=== PATIENT | female | born 1955 | race Caucasian/White ===

== ENCOUNTER 2024-08-07 13:11 | Outpatient (CLI) | payer MEDICARE, SELFPAY ==
--- NOTE | 2024-08-07 | ECHO_ITS ---
Patient Info Name: LUIS ANTONIO HUNTER Age: 68 years : 1955 Gender: Female Ht: 64 in Wt: 130 lbs BSA: 1.64 m2 HR: 77 bpm BP: 180 / 103 mmHg Technical Quality: Good Exam Date: 08/07/2024 1:39 PM Exam Location: Echo Lab Patient Status: Outpatient Admit Date: 08/07/2024 Staff Ordering Physician: RuyNiharika M.D. Desk Manager: Belen Balderas RDCS Attending Provider: Mario*Niharika M.D. Exam Type: CA echo doppler color flow Study Info Indications R01.1 - Cardiac murmur, unspecified Complete two-dimensional, color flow and Doppler transthoracic echocardiogram is performed. Summary 1. Complete two-dimensional, color flow and Doppler transthoracic echocardiogram is performed. 2. Left ventricular chamber dimension is normal. 3. Left ventricular systolic function is hyperdynamic, estimated at >70%. 4. There is moderate concentric increased left ventricular wall thickness. 5. The left ventricular diastolic function is grade I diastolic dysfunction. 6. E/e' 28 is elevated. 7. Left atrial chamber dimension is mildly enlarged. 8. There is moderate aortic valve sclerosis. 9. The mitral valve has moderately calcified annulus. 10. No pulmonary hypertension, estimated pulmonary arterial systolic pressure is 31 mmHg. Left Ventricle E/e' 28 is elevated. Left ventricular chamber dimension is normal. Left ventricular systolic function is hyperdynamic, estimated at >70%. There is moderate concentric increased left ventricular wall thickness. The left ventricular diastolic function is grade I diastolic dysfunction. Right Ventricle Right ventricular systolic function is normal and with normal TAPSE 2.0 cm. Right ventricular chamber dimension is normal. Left Atria Left atrial chamber dimension is mildly enlarged. Right Atria Right atrial chamber dimension is normal. Aortic Valve The aortic valve is trileaflet. There is moderate aortic valve sclerosis. There is no aortic valve stenosis. There is no aortic valve regurgitation. Pulmonic Valve There is no pulmonic regurgitation. Mitral Valve The mitral valve has moderately calcified annulus. There is no mitral valve stenosis. There is no mitral valve regurgitation. Tricuspid Valve There is no tricuspid valve regurgitation. No pulmonary hypertension, estimated pulmonary arterial systolic pressure is 31 mmHg. Pericardium/Pleural There is no pericardial effusion. Inferior Vena Cava Normal inferior vena cava with >50% collapse upon inspiration consistent with normal right atrial pressure, 5 mmHg. Aorta The aortic root size at the sinus of Valsalva is normal. Left Ventricular Outflow Tract Name Value Normal LVOT 2D LVOT Diameter 1.9 cm LVOT Doppler LVOT Peak Gradient 12 mmHg LVOT Mean Gradient 7 mmHg LVOT VTI 37 cm LVOT VTI/AV VTI Ratio 0.8 LVOT Stroke Volume 108 ml LVOT CO 7.5 l/min LVOT CI 4.6 l/min/m2 Pulmonic Valve Name Value Normal RVOT Doppler RVOT Peak Gradient 3 mmHg PV Doppler PV Peak Gradient 4 mmHg Mitral Valve Name Value Normal MV Doppler MV Decel [place] 453 cm/s2 MV PHT 65 ms MV Area (PHT) 3.4 cm2 4.0-5.0 MV Diastolic Function MV E Peak Velocity 101 cm/s MV A Peak Velocity 142 cm/s MV E/A 0.7 MV Decel Time 224 ms Tricuspid Valve Name Value Normal TV Regurgitation Doppler TR Peak Velocity 256 cm/s TR Peak Gradient 26 mmHg Estimated PAP/RSVP RA Pressure 5 mmHg <=5 PA Systolic Pressure 31 mmHg <36 RV Systolic Pressure 31 mmHg <36 Aorta Name Value Normal Ascending Aorta Ao Root Diameter (MM) 3.1 cm Ao Root Diam Index (MM) 1.9 cm/m2 Aortic Valve Name Value Normal AV Doppler AV Peak Velocity 244 cm/s AV Peak Gradient 11 mmHg AV Mean Gradient 7 mmHg AV VTI 44 cm AV Area (Cont Eq VTI) 2.5 cm2 >=3.0 AV Area (Cont Eq Brendon) 3.0 cm2 AV Regurgitation 2D LVOT Area 2.9 cm2 Ventricles Name Value Normal LV Dimensions 2D/MM IVS Diastolic Thickness (2D) 1.1 cm 0.6-1.0 IVS Diastole Thickness (MM) 1.0 cm 0.6-0.9 LVID Diastole (2D) 3.4 cm 3.8-5.2 LVID Diastole (MM) 4.5 cm 3.8-5.2 LVIW Diastolic Thickness (2D) 1.3 cm 0.6-0.9 LVIW Diastolic Thickness (MM) 1.1 cm 0.6-0.9 LVID Systole (2D) 2.1 cm 2.2-3.5 LVID Systole (MM) 2.4 cm 2.2-3.5 LVOT Diameter 1.9 cm LV Mass (2D Cubed) 130.31 g 67.00-162.00 LV Mass Index (2D Cubed) 80 g/m2 43-95 Relative Wall Thickness (2D) 0.76 LV Mass (MM Cubed) 165.61 g 67.00-162.00 LV Mass Index (MM Cubed) 101 g/m2 43-95 Relative Wall Thickness (MM) 0.49 LV Fractional Shortening/Ejection Fraction 2D/MM LV Fractional Shortening (2D) 40 % 27-45 LV Fractional Shortening (MM) 46 % 27-45 LV EF (MM Teicholz) 78 % 54-74 LV EF (2D Teicholz) 72 % 54-74 LV Diastolic Volume (4C MOD) 64 ml LV EF (4C MOD) 62 % LV Diastolic Volume (2C MOD) 40 ml LV EF (2C MOD) 41 % LV Diastolic Volume (BP MOD) 49 ml 46-106 LV Diastolic Volume Index (BP MOD) 30 ml/m2 29-61 LV Systolic Volume (BP MOD) 24 ml 14-42 LV Systolic Volume Index (BP MOD) 14 ml/m2 8-24 LV EF (BP MOD) 52 % 54-74 LV Diastolic Length (4C) 8.1 cm LV Systolic Length (4C) 6.7 cm LV Stroke Volume (4C MOD) 40 ml Atria Name Value Normal LA Dimensions LA Dimension (MM) 3.5 cm 2.7-3.8 LA Volume (4C A-L) 52 ml LA Volume (BP A-L) 48 ml RA Dimensions RA Area (4C) 9.1 cm2 <=18.0 Report Signatures
--- NOTE | ~2024-08-07 | CT_ITS ---
CT Scan of the Chest without Contrast: Clinical Indication: Lung cancer screening, nicotine dependence Technique: Contiguous sections were acquired throughout the chest without intravenous contrast. Dose reduction technique was used on this scan by utilizing automated exposure control and iterative recon struction technique. The dose-length product (DLP) was 49.90 mGy-cm. Findings: There is no evidence of any significant mediastinal, hilar or axillary lymphadenopathy. The mediastin al soft tissues appear normal. There is no evidence of pleural or pericardial effusion. There are several tiny subcentimeter groundglass peripheral pulmonary nodules in the right upper lobe . Images through the upper abdomen reveal no abnormalities. Impression: Lung RADS 2: Benign appearance. 12 month follow-up screening CT advised. Reviewed, dictated and finalized at location . Impression: Lung RADS 2: Benign appearance. 12 month follow-up screening CT advised.
--- OUTSIDE RECORDS SUMMARY | 2024-08-07 14:31 | XMS_ITS | Clinical Summary ---
Author Organization [facility] [employer] Address [address] [place] [address] Care Team Providers Care Exhaust Equipment Operator Name Role Phone Unavailable Primary Care Provider Unavailabl e Source Comments [facility] hospital center Affiliates and Associated Physician Practices is amultiple site organization consisting of ambulatory clinics and hospital sitesin [place], [place], [place] and [place]. This disclosure is being madepursuant to the Care Everywhere program and may not contain all information available regarding this patient. Last updated 18.[facility] [employer] Social History Tobacco Use Types Packs/Day Years Used Date Smoking Tobacco: Never Assessed Comments Unknown Sex and Gender Information Value Date Recorded Sex Assigned at Not on file Legal Sex Female 9:15 PM CDT Gender Identity Not on file Sexual Orientation Not on file Plan of Treatment Health Maintenance Due Date Last Done Comments BONE DENSITY TESTING 1955 COLOGUARD (AGES 45-75) - COL ON CA SCREENING 1955 COLON MONITORING 1955 COLONOSCOPY - COLON CA SCREENING 1955 CT COLONOGRAPHY - COLON CA SCREENING 1955 Colorectal Cancer Screening 1955 FIT - COLON CA SCREENING 1955 FLEX SIG - COLON CA SCREENING 1955 LIPID TESTING 1955 MAMMOGRAM 1955 HEPATITIS C SCREENING 08/24/1971 DTAP/TDAP/TD VACCINES (1 - Tdap) 1972 PNEUMOCOCCAL VACCINE 50+ (1 of 1 - PCV) 08/29/2003 ZOSTER VACCINE (1 of 2) 08/29/2003 COVID-19 VACCINE ( - 2023-2 5 season) 2023 DEPRESSION SCREENING 04/26/2024 INFLUENZA VACCINE (Season Ended) 2024 Respiratory Syncytial Virus (RSV) Vaccine Pt: or over 60 yrs (1 - 1-dose 75+ series) 2028 HEPATITIS B VACCINE Aged Out No longe r eligible based on patient's age to complete this topic HIB VACCINE Aged Out No longer eligi ble based on patient's age to complete this topic HPV VACCINE Aged Out No longer eligi ble based on patient's age to complete this topic MENINGOCOCCAL (Group B) VACC INE SHARED DECISION-MAKING Aged Out No longer eligibl e based on patient's age to complete this topic MENINGOCOCCAL GROUPS A/C/Y/W VACCINE Aged Out No longer eligible b ased on patient's age to complete this topic
--- OUTSIDE RECORDS SUMMARY | 2024-08-07 14:32 | XMS_ITS | Data Portability ---
Author Organization [facility] Randa [facility] Address [address] [place] [address] Care Team Providers Care Auction Block Clerk Name Role Phone NIHARIKA TROTTER Primary Care Provider Assessment No assessment recorded. Plan of Treatment Reminders Order Date Submit Date Provider Last Modified By Organization Details Last Modified Time Details Appointments ANY 15 2024 02:15P M Niharika Trotter MD Not available Not available Not available Lab TSH, ultra- sensit una, serum 2024 025 [place] [facility], [address], [place], [address], 07/21/2024 08:29:37 urinal ysis macro (dipst ick) panel, urine 2024 025 [place] [facility], [address], [place], [address], 07/21/2024 08:29:36 CMP, serum or plasma 2024 025 [place] [facility], [address], [place], [address], 07/21/2024 08:29:34 CBC 2024 025 [place] [facility], [address], [place], [address], 07/21/2024 08:29:39 vitami n D, 25-hyd paty, total, serum 2024 025 [place] [facility], [address], [place], [address], 07/21/2024 08:29:40 Hepati tis C IgG Ab, qual, serum 2024 [place] [facility], [address], [place], [address], 07/21/2024 08:29:32 lipid panel, serum 2024 [place] [facility], [address], [place], [address], 07/21/2024 08:29:33 Referral None record ed. Procedures None record ed. Surgeries None record ed. Imaging LDCT, chest, for lung cancer screen ing 2024 [facility] (Imaging), [address] [place] [address] [place] [address], [phone], 07/20/2024 11:27:08 US, echoca rdiogr am, transt horaci c, comple te, w/ color flow - HTN, Heart murmur 2024 [facility] (Imaging), [address] [place] [address] [place] [address], [phone], 07/20/2024 11:27:08 Medication Orders nifedi pine ER 30 mg tablet ,exten ded releas e 24 hr 2024 [place] [id number], [address], [place], [place], [id number], 07/19/2024 14:51:58 Patient TargetsNo targets recorded. Patient Instructions Encounter Date Encounter Id Patient Instructions Last Modified By Organization Details Last Modified Time 07/19/2024 [id number] heart murmur: care instructions [email or web address] Not available 07/19/2024 14:42:52 Labs Low salt diet Start Nifedipine LDCT TTE Stop smoking Cologuard or the equivalent results Follow up in 4 weeks [email or web address] Not available 07/19/2024 14:56:07 Reason for Referral None Reported. Results Created Date Observation Date Name Description Value Unit Range Abnormal Flag Note LastModifiedBy Organization Detail LastModifiedTime 07/21/1907/21/2024 HCV ANTIB VOLODYMYR hep C virus Ab NON REACTI VE nonrea ctive HCV antib volodymyr alone does not diffe renti ate betwe en previ ously resol jasmin infec tion and activ e infec tion. Equiv ocal and React una HCV antib volodymyr resul ts shoul d be follo wed up with an HCV RNA test to suppo rt the diagn osis of activ e HCV infec tion. Not Available [facility] ([facility]) [address] [facility], [place], [address], 07/21/2024 08:29:32 07/21/19 25 07/21/2024 LIPID PANEL cholesterol, total 220 mg/dL 100-19 9 above high normal Not Available [facility] ([facility]) [address] [place], [address], 07/21/2024 08:29:33 07/21/19 25 07/21/2024 LIPID PANEL triglyceride s 146 mg/dL 0-149 Not Available [facility] ([facility]) [address] [place], [address], 07/21/2024 08:29:33 07/21/19 25 07/21/2024 LIPID PANEL HDL cholesterol 57 mg/dL >39 Not Available [facility] ([facility]) [address] [place], [address], 07/21/2024 08:29:33 07/21/19 25 07/21/2024 LIPID PANEL VLDL cholesterol chai 26 mg/dL 5-40 Not Available [facility] ([facility]) [address] [place], [address], 07/21/2024 08:29:33 07/21/19 25 07/21/2024 LIPID PANEL LDL chol calc ([facility]) 137 mg/dL 0-99 above high normal Not Available [facility] ([facility]) [address] [place], [address], 07/21/2024 08:29:33 07/21/19 25 07/21/2024 COMP. METAB OLIC PANEL (14) glucose 112 mg/dL 70-99 above high normal Not Available [facility] ([facility]) [address] [place], [address], 07/21/2024 08:29:34 07/21/19 25 07/21/2024 COMP. METAB OLIC PANEL (14) BUN 12 mg/dL 8-27 Not Available [facility] ([facility]) [address] [place], [address], 07/21/2024 08:29:34 07/21/19 25 07/21/2024 COMP. METAB OLIC PANEL (14) creatinine 1.07 mg/dL 0.57-1 .00 above high normal Not Available [facility] ([facility]) [address] [place], [address], 07/21/2024 08:29:34 07/21/19 25 07/21/2024 COMP. METAB OLIC PANEL (14) eGFR 56 mL/mi n/1.7 3 >59 below low normal Not Available [facility] ([facility]) [address] [place], [address], 07/21/2024 08:29:34 07/21/19 25 07/21/2024 COMP. METAB OLIC PANEL (14) BUN/creatini ne ratio 11 12-28 below low normal Not Available [facility] ([facility]) [address] [place], [address], 07/21/2024 08:29:34 07/21/19 25 07/21/2024 COMP. METAB OLIC PANEL (14) sodium 143 mmol/ L 134-14 4 Not Available [facility] ([facility]) [address] [place], [address], 07/21/2024 08:29:34 07/21/19 25 07/21/2024 COMP. METAB OLIC PANEL (14) potassium 4.2 mmol/ L 3.5-5. 2 Not Available [facility] ([facility]) [address] [place], [address], 07/21/2024 08:29:34 07/21/19 25 07/21/2024 COMP. METAB OLIC PANEL (14) chloride 102 mmol/ L 96-106 Not Available [facility] ([facility]) [address] [place], [address], 07/21/2024 08:29:34 07/21/19 25 07/21/2024 COMP. METAB OLIC PANEL (14) carbon dioxide, total 26 mmol/ L 20-29 Not Available [facility] ([facility]) [address] [facility] [place], [address], 07/21/2024 08:29:34 07/21/19 25 07/21/2024 COMP. METAB OLIC PANEL (14) calcium 9.7 mg/dL 8.7-10 .3 Not Available [facility] ([facility]) [address] [facility] [place], [address], 07/21/2024 08:29:34 07/21/19 25 07/21/2024 COMP. METAB OLIC PANEL (14) protein, total 6.7 g/dL 6.0-8. 5 Not Available [facility] ([facility]) [address] [facility] [place], [address], 07/21/2024 08:29:34 07/21/19 25 07/21/2024 COMP. METAB OLIC PANEL (14) albumin 4.2 g/dL 3.9-4. 9 Not Available [facility] ([facility]) [address] [facility] [place], [address], 07/21/2024 08:29:34 07/21/19 25 07/21/2024 COMP. METAB OLIC PANEL (14) globulin, total 2.5 g/dL 1.5-4. 5 Not Available [facility] ([facility]) [address] [facility], [place], [address], 07/21/2024 08:29:34 07/21/19 25 07/21/2024 COMP. METAB OLIC PANEL (14) bilirubin, total 0.6 mg/dL 0.0-1. 2 Not Available [facility] ([facility]) [address] [facility], [place], [address], 07/21/2024 08:29:34 07/21/19 25 07/21/2024 COMP. METAB OLIC PANEL (14) alkaline phosphatase 80 IU/L 44-121 Not Available [facility] ([facility]) [address] [facility], [place], [address], 07/21/2024 08:29:34 07/21/19 25 07/21/2024 COMP. METAB OLIC PANEL (14) AST (SGOT) 18 IU/L 0-40 Not Available [facility] ([facility]) [address] [facility], [place], [address], 07/21/2024 08:29:34 07/21/19 25 07/21/2024 COMP. METAB OLIC PANEL (14) ALT (SGPT) 9 IU/L 0-32 Not Available [facility] ([facility]) [address] [facility], [place], [address], 07/21/2024 08:29:34 07/21/19 25 07/21/2024 MICRO SCOPI C EXAMI NATIO N WBC None seen /hpf 0-5 Not Available [facility] ([facility]) [address] [facility], [place], [address], 07/21/2024 08:29:35 07/21/19 25 07/21/2024 MICRO SCOPI C EXAMI NATIO N RBC None seen /hpf 0-2 Not Available [facility] ([facility]) [address] [facility], [place], [address], 07/21/2024 08:29:35 07/21/19 25 07/21/2024 MICRO SCOPI C EXAMI NATIO N epithelial cells (non renal) >10 /hpf 0-10 abnormal Not Available [facility] ([facility]) [address] [facility], [place], [address], 07/21/2024 08:29:35 07/21/19 25 07/21/2024 MICRO SCOPI C EXAMI NATIO N casts None seen /lpf nonese en Not Available [facility] ([facility]) [address] [facility], [place], [address], 07/21/2024 08:29:35 07/21/19 25 07/21/2024 MICRO SCOPI C EXAMI NATIO N bacteria Few nonese en/few Not Available [facility] ([facility]) [address] [facility], [place], [address], 07/21/2024 08:29:35 07/21/19 25 07/21/2024 URINA LYSIS , ROUTI NE specific gravity 1.008 1.005- 1.030 Not Available [facility] ([facility]) [address] [place], [address], 07/21/2024 08:29:36 07/21/19 25 07/21/2024 URINA LYSIS , ROUTI NE pH 7.5 5.0-7. 5 Not Available [facility] ([facility]) [address] [place], [address], 07/21/2024 08:29:36 07/21/19 25 07/21/2024 URINA LYSIS , ROUTI NE urine-color YELLOW yellow Not Available [facility] ([facility]) [address] [place], [address], 07/21/2024 08:29:36 07/21/19 25 07/21/2024 URINA LYSIS , ROUTI NE appearance CLEAR clear Not Available [facility] ([facility]) [address] [facility], [place], [address], 07/21/2024 08:29:36 07/21/19 25 07/21/2024 URINA LYSIS , ROUTI NE WBC esterase NEGATI VE negati ve Not Available [facility] ([facility]) [address] [facility], [place], [address], 07/21/2024 08:29:36 07/21/19 25 07/21/2024 URINA LYSIS , ROUTI NE protein NEGATI VE negati ve/tra ce Not Available [facility] ([facility]) [address] [facility], [place], [address], 07/21/2024 08:29:36 07/21/19 25 07/21/2024 URINA LYSIS , ROUTI NE glucose NEGATI VE negati ve Not Available [facility] ([facility]) [address] [facility], [place], [address], 07/21/2024 08:29:36 07/21/19 25 07/21/2024 URINA LYSIS , ROUTI NE ketones NEGATI VE negati ve Not Available [facility] ([facility]) [address] [facility], [place], [address], 07/21/2024 08:29:36 07/21/19 25 07/21/2024 URINA LYSIS , ROUTI NE occult blood TRACE negati ve abnormal Not Available [facility] ([facility]) [address] [facility], [place], [address], 07/21/2024 08:29:36 07/21/19 25 07/21/2024 URINA LYSIS , ROUTI NE bilirubin NEGATI VE negati ve Not Available [facility] ([facility]) [address] [place], [address], 07/21/2024 08:29:36 07/21/1907/21/2024 URINA LYSIS , ROUTI NE urobilinogen ,semi-qn 0.2 mg/dL 0.2-1. 0 Not Available [facility] ([facility]) [address] [place], [address], 07/21/2024 08:29:36 07/21/1907/21/2024 URINA LYSIS , ROUTI NE nitrite, urine NEGATI VE negati ve Not Available [facility] ([facility]) [address] [place], [address], 07/21/2024 08:29:36 07/21/1907/21/2024 URINA LYSIS , ROUTI NE microscopic examination SEE BELOW: Micro scopi c was indic ated and was perfo rmed. Not Available [facility] ([facility]) [address] [place], [address], 07/21/2024 08:29:36 07/21/1907/21/2024 TSH TSH 4.290 uIU/m L 0.450- 4.500 Not Available [facility] ([facility]) [address] [place], [address], 07/21/2024 08:29:37 07/21/1907/21/2024 CBC, PLATE LET, NO DIFFE RENTI AL WBC 9.0 x10e3 /uL 3.4-10 .8 Not Available [facility] ([facility]) [address] [place], [address], 07/21/2024 08:29:39 07/21/1907/21/2024 CBC, PLATE LET, NO DIFFE RENTI AL RBC 5.64 x10e6 /uL 3.77-5 .28 above high normal Not Available [facility] ([facility]) [address] [place], [address], 07/21/2024 08:29:39 07/21/1907/21/2024 CBC, PLATE LET, NO DIFFE RENTI AL hemoglobin 14.2 g/dL 11.1-1 5.9 Not Available [facility] ([facility]) [address] [place], [address], 07/21/2024 08:29:39 07/21/1907/21/2024 CBC, PLATE LET, NO DIFFE RENTI AL hematocrit 45.2 % 34.0-4 6.6 Not Available [facility] ([facility]) [address] [place], [address], 07/21/2024 08:29:39 07/21/1907/21/2024 CBC, PLATE LET, NO DIFFE RENTI AL MCV 80 fL 79-97 Not Available [facility] ([facility]) [address] [place], [address], 07/21/2024 08:29:39 07/21/1907/21/2024 CBC, PLATE LET, NO DIFFE RENTI AL MCH 25.2 pg 26.6-3 3.0 below low normal Not Available [facility] ([facility]) [address] [place], [address], 07/21/2024 08:29:39 07/21/1907/21/2024 CBC, PLATE LET, NO DIFFE RENTI AL MCHC 31.4 g/dL 31.5-3 5.7 below low normal Not Available [facility] ([facility]) [address] [place], [address], 07/21/2024 08:29:39 07/21/1907/21/2024 CBC, PLATE LET, NO DIFFE RENTI AL RDW 14.4 % 11.7-1 5.4 Not Available [facility] ([facility]) [address] [place], [address], 07/21/2024 08:29:39 07/21/19 25 07/21/2024 CBC, PLATE LET, NO DIFFE RENTI AL platelets 360 x10e3 /uL 150-45 0 Not Available [facility] ([facility]) [address] [facility], [place], [address], 07/21/2024 08:29:39 07/21/19 25 07/21/2024 VITAM IN D, 25-HY DROXY vitamin D, 25-hydroxy 18.7 NG/mL 30.0-1 00.0 below low normal Vitam in D defic iency has been defin ed by the Insti tute of Medic ine and an Endoc rine Socie ty pract ice guide line as a level of serum 25-OH vitam in D less than 20 ng/mL (1,2) . The Endoc rine Socie ty went on to furth er defin e vitam in D insuf ficie ncy as a level betwe en 21 and 29 ng/mL (2). 1. IOM (Inst itute of Medic ine). 2009. Dieta ry refer ence intember es for calci um and D. Nilda valdivia [place]: [facility] . 2. Stephy de [place], Arlene fournier [place], Bismartha off-F errar i DINH, et al. Evalu ation , treat ment, and preve ntion of vitam in D defic iency : an Endoc rine Socie ty clini chai pract ice guide line. JCEM. 2010; 96(7) :1911 -30. Not Available [facility] ([facility]) [address] [facility], [place], [address], 07/21/2024 08:29:40 Result Notes None recorded. Problems Name Problem SNOMED Code Status Onset Date Resolution Date Notes Provider Name and Address Organization Details Recorded Time Benign hypertensio n 92202911 Active 2024 Niharika Trotter MD Attn: Accountin g,[address] [facility], [place], [address], [facility] 5 14:41:05 History of nicotine dependence Active 2024 Niharika Trotter MD Attn: Adelaida elvira,[address] [facility], [place], [place], [address] [place] [address] 2, [place] - [facility] 5 14:41:07 Pneumococca l vaccination declined 332593689 Active 2024 Niharika Trotter MD Attn: Adelaida elvira,[address] [facility], [place], [place], [address] [place] [address], [place] [facility] 5 14:41:37 Tetanus vaccination declined by patient 054592136 Active 2024 Niharika Trotter MD Attn: Adelaida elvira,[address] [facility], [place], [place], [address] [place] [address] 2, [facility] - [facility] 5 14:41:40 Heart murmur 98712150 Active 2024 Niharika Trotter MD Attn: Adelaida elvira,[address] [facility], [place], [place], [address] [place] [address] 2, [place] [facility] 14:42:59 Breast cancer screening declined 2808607766723 9103 Active 2024 Niharika Trotter MD Attn: Adelaida elvira,[address] [facility], [place], [place], [address] [place] [address] 2, [place] [facility] 19:48:27 Influenza vaccination declined 844581533 Active 2024 Niharika Trotter MD Attn: Adelaida elvira,[address] [facility], [place], [address], [place] [facility] 19:49:03 Problem Notes None recorded. Procedures Surgical History Date Name Laterality Status Provider Name and Address Organization Details Recorded Time open reduction completed Niharika Trotter MD Attn: Accounting,[address] [place], [address], [place] [facility] 07/19/2024 14:26:56 Appendectomy completed Niharika Trotter MD Attn: Accounting,[address] [place], [address], [facility] 07/19/2024 14:26:34 Imaging Results None recorded. Procedure Notes None recorded. Medical Equipment None Reported. Allergies No known drug allergies Medications Name Sig Start Date Stop Date Status Note LastModified by Organization Details LastModified Time nifedipine ER 30 mg tablet,exten ded release 24 hr Take 1 tablet every day by oral route around the clock for 30 days, for HTN. 025 active Not Available Not Available Not Avai lable Vitals Date Recorded Body weight Body mass index (BMI) Body height Body temperature Heart rate Oxygen saturation Oxygen saturation in Arterial blood by Pulse oximetry Systolic blood pressure Diastolic blood pressure Provider Name and Address Organization Details Last Updated DateTime 54224.3 7 g 22.3 kg/m2 162.56 cm 97.3 [degF] 83 /min 98 % 98 % 146 mm[Hg] 90 mm[Hg] Marietta Gary [facility] 14:18:05 Date Recorded Respiratory rate Systolic blood pressure Diastolic blood pressure Provider Name and Address Organization Details Last Updated DateTime 07/19/2024 12 /min 160 mm[Hg] 100 mm[Hg] Niharika Trotter MD Attn: Accounting, [address] [facility], [place], [address], [facility] 07/19/2024 14:56:30 Social History Question Answer Notes LastModified by Organizat ion Details LastModified Time Tobacco Smoking Status Current Every Day Smoker Marietta Gary [facility], [facility] 07/19/2024 14:13:50 What Is Your Level Of Alcohol Consumption? None Stopped 1999 Information not available 07/19/2024 What Is Your Level Of Caffeine Consumption? Moderate Information not available 07/19/2024 What Was The Date Of Your Most Recent Tobacco Screening? 07/19/2024 [email or web address] Information not available 07/19/2024 What Is Your Current Pack Years? 30ormorepack years [email or web address] Information not available 07/19/2024 At What Age Did You Start Smoking Tobacco? 13 Information not available 07/19/2024 How Much Tobacco Do You Smoke? 0.5 PPD [email or web address] Information not available 07/19/2024 Do You Use Any Illicit Or Recreational Drugs? No Information not available 07/19/2024 Has Tobacco Cessation Counseling Been Provided? Yes [email or web address] Information not available 07/19/2024 On What Date Was Tobacco Cessation Counseling Provided? 07/19/2024 [email or web address] Information not available 07/19/2024 How Many Years Have You Smoked Tobacco? 55 Since 13 Yo Information not available 07/19/2024 Do You Or Have You Ever Used Any Other Forms Of Tobacco Or Nicotine? No [email or web address] Information not available 07/19/2024 Sex: Unknown Functional Status None recorded. Mental Status None recorded. Family History Relationship Description Onset Age of this Age Resolved Age Notes LastModified by Organization Details LastModified Time Mother Heart disease [email or web address] Not available 2024 14:28:01 Brother Neoplasm of lung [email or web address] Not available 2024 14:28:28 Medical History No medical history recorded. Gynecological History Statement/Question Response Date of LMP 04/26/2003 Obstetrics History GPAL:G 0 P 0 0 0 0 Immunizations Vaccine Type Date Status Note Provider Nam e and Address Organization Details Recorded Time COVID-19 vaccine, vector-nr, rS-Ad26, PF, 0.5 mL 06/30/2020 completed Niharika Trotter MD Attn: Accounting,[address] [place], [address], [facility] - [facility] 07/19/2024 14:19:46 Past Encounters Encounter ID Performer Location Encounter Start Date Encounter Closed Date Diagnosis/Indication Diagnosis SNOMED-CT Code Diagnosis ICD10 Code Diagnosis Note [id number] Niharika Trotter MD [facility] (Adult Med) [address] [place] [address] 07/19/2024 13:44:50 07/20/2024 11:27:08 General examination of patient 029990189 Z00.01 History of nicotine dependence 0718961863 85876518 Z87.891 Tetanus va ccination declined by patient 828469568 Z28.21 Benign hypertension 1072 5009 I10 Discussed in detailStar t Nifedipine 30mg po daily, side effects were discussed Pneumococc al vaccination declined 967706090 Z28.21 Breast can cer screening declined 9732998670 0246680 Z53.20 Heart murmur 05376998 R0 1.1 Tachycardia 0739117 R00. 0 Influenza vaccination declined 552044569 Z28.21 Health Concerns Section Related Observation LastModified by Organization Detai ls LastModified Time None Recorded Concern Status LastModified by Organization Details LastModified Time None Recorded Advance Directives Directive None Recorded Payers Encounter Date Sequence Insurance Name Policy Number Policy Martin Covered Member ID Martin Member ID Guarantor Name 07/19/2024 1 [facility] (MEDICARE REPLACEMENT/ ADVANTAGE - HMO) [id number] Rachael Moore [id number] Rachael Moore Notes Date Note Type Note Provider Name and Address Organization Details Recorded Time 5 text/html HypertensionReported bypatient.Severity:mild Duration:began on: (07/20/2027) Onset/Timing:better Associated Symptoms:no shortness of breath; no fatigue; no palpitations; no decline in exercise capacity; no snoring Because they kept bugging me and they sent a nurse out 68 y/o WF with a PMHX. of a Heart Murmur and Nicotine addiction who presents as a new patient. she has no complaints and she has never been told that she has HTN Niharika Trotter MD Attn: Accounting,[address] [place], [address], [facility] - [facility] 07/19/2024 19:49:33 OBGyn Episode No OBEpisode recorded.
== END 2024-08-07 13:12 | disposition home or self-care (01) ==
PROVIDERS: PCP Internal Medicine Infectious Disease; Visit Provider Internal Medicine Infectious Disease
DX: Z12.2 Encounter for screening for malignant neoplasm of respiratory organs (principal); R01.1 Cardiac murmur, unspecified; Z87.891 Personal history of nicotine dependence
CPT/HCPCS: 71271; 93306

== ENCOUNTER 2024-10-25 14:14 | Outpatient (CLI) | payer MEDICARE, SELFPAY ==
--- OUTSIDE RECORDS SUMMARY | 2024-10-25 14:23 | XMS_ITS | Data Portability ---
Author Organization [facility] Address [address] [place] [address] Care Team Providers Care Special Education Assistant Name Role Phone NIHARIKA TROTTER Primary Care Provider Assessment No assessment recorded. Plan of Treatment Reminders Order Date Submit Date Provider Last Modified By Organization Details Last Modified Time Details Appointments ANY 2024 01:00P M Niharika Trotter MD Not available Not available Not available Lab TSH, ultra-sen sitive, serum 2024 025 [facility], [address], [place], [address], 07/21/2024 08:29:37 urinalysi s macro (dipstick ) panel, urine 2024 025 [facility], [address], [place], [address], 07/21/2024 08:29:36 CMP, serum or plasma 2024 025 [facility], [address], [place], [address], 07/21/2024 08:29:34 CBC 2024 025 [facility], [address], [place], [address], 07/21/2024 08:29:39 vitamin D, 25-hydrox y, total, serum 2024 025 [facility], [address], [place], [address], 07/21/2024 08:29:40 Hepatitis C IgG Ab, qual, serum 2024 025 [facility], [address], [place], [address], 07/21/2024 08:29:32 lipid panel, serum 2024 [facility] [address], [place], [address], 07/21/2024 08:29:33 Referral None recorded. Procedures None recorded. Surgeries None recorded. Imaging LDCT, chest, for lung cancer screening 2024 025 [facility] (Imaging), [address] [place] [address] [address] [facility], [place], [address], 08/08/2024 07:55:53 US, echocardi ogram, transthor acic, complete, w/ color flow - HTN, Heart murmur 2024 025 [facility] (Imaging), [address] [place] [address] [address] [facility], [place], [address], 08/07/2024 15:57:41 Medication Orders nifedipin e ER 60 mg tablet,ex tended release 24 hr 2024 [facility] #[id number], [address], [place], [place], [id number], 10/09/2024 17:18:00 ergocalci ferol (vitamin D2) 1,250 mcg (50,000 unit) capsule 2024 025 [facility] #[id number], [address], [place], [place], [id number], 09/13/2024 15:54:39 nifedipin e ER 30 mg tablet,ex tended release 24 hr 2024 025 [facility] #[id number], [address], [place], [place], [id number], 10/09/2024 17:18:12 nifedipin e ER 30 mg tablet,ex tended release 24 hr 2024 [id number], [address], [place], [place], [id number], 10/09/2024 17:17:57 Patient TargetsNo targets recorded. Patient Instructions Encounter Date Encounter Id Patient Instructions Last Modified By Organization Details Last Modified Time 07/19/2024 [id number] heart murmur: care instructions oajao Not available 07/19/2024 14:42:52 Labs Low salt diet Start Nifedipine LDCT TTE Stop smoking Cologuard or the equivalent results Follow up in 4 weeks oajao Not available 07/19/2024 14:56:07 09/13/2024 [id number] Start Nifedipine Start weekly Vitamin D Low cholesterol diet, low CHO diet Cardiology Follow up in 3-4 weeks oajao Not available 09/13/2024 15:55:59 10/09/2024 [id number] abnormal weight loss: care instructions oajao Not available 10/09/2024 18:27:32 Nifedipine 60 mg Follow up in 3-4 weeks oajao Not available 10/09/2024 17:19:16 Reason for Referral None Reported. Results Created [...] e HCV infec tion. Not Available [facility] ([facility]) [address] [place], [address], 07/21/2024 08:29:32 07/21/19 25 07/21/2024 LIPID PANEL cholesterol, total 220 mg/dL 100-19 9 above high normal Not Available [facility] ([facility]) [address] [place], [address], 07/21/2024 08:29:33 07/21/19 25 07/21/2024 LIPID PANEL triglyceride s 146 mg/dL 0-149 Not Available [facility] ([facility]) [address] [place], [address], 07/21/2024 08:29:33 07/21/19 25 07/21/2024 LIPID PANEL HDL cholesterol 57 mg/dL >39 Not Available [facility] ([facility]) [address] [place], [address], 07/21/2024 08:29:33 07/21/19 25 07/21/2024 LIPID PANEL VLDL cholesterol chai 26 mg/dL 5-40 Not Available [facility] ([facility]) [address] [place], [address], 07/21/2024 08:29:33 07/21/19 25 07/21/2024 LIPID PANEL LDL chol [facility] 137 mg/dL 0-99 above high normal Not Available [facility] ([facility]) [address] [place], [address], 07/21/2024 08:29:33 07/21/19 25 07/21/2024 COMP. METAB OLIC PANEL (14) glucose 112 mg/dL 70-99 above high normal Not Available [facility] ([facility]) [address] [place], [address], 07/21/2024 08:29:34 07/21/19 25 07/21/2024 COMP. METAB OLIC PANEL (14) BUN 12 mg/dL 8-27 Not Available [facility] ([facility]) [address] [place], [address], 07/21/2024 08:29:34 07/21/19 25 07/21/2024 COMP. METAB OLIC PANEL (14) creatinine 1.07 mg/dL 0.57-1 .00 above high normal Not Available [facility] ([facility]) [address] [facility] [place], [address], 07/21/2024 08:29:34 07/21/19 25 07/21/2024 COMP. METAB OLIC PANEL (14) eGFR 56 mL/mi n/1.7 3 >59 below low normal Not Available [facility] ([facility]) [address] [facility] [place], [address], 07/21/2024 08:29:34 07/21/19 25 07/21/2024 COMP. METAB OLIC PANEL (14) BUN/creatini ne ratio 11 12-28 below low normal Not Available [facility] ([facility]) [address] [facility] [place], [address], 07/21/2024 08:29:34 07/21/19 25 07/21/2024 COMP. METAB OLIC PANEL (14) sodium 143 mmol/ L 134-14 4 Not Available [facility] ([facility]) [address] [facility] [place], [address], 07/21/2024 08:29:34 07/21/19 25 07/21/2024 COMP. METAB OLIC PANEL (14) potassium 4.2 mmol/ L 3.5-5. 2 Not Available [facility] ([facility]) [address] [facility] [place], [address], 07/21/2024 08:29:34 07/21/19 25 07/21/2024 COMP. METAB OLIC PANEL (14) chloride 102 mmol/ L 96-106 Not Available [facility] ([facility]) [address] [facility], [place], [address], 07/21/2024 08:29:34 07/21/19 25 07/21/2024 COMP. METAB OLIC PANEL (14) carbon dioxide, total 26 mmol/ L Not Available [facility] ([facility]) [address] [facility], [place], [address], 07/21/2024 08:29:34 07/21/19 25 07/21/2024 COMP. METAB OLIC PANEL (14) calcium 9.7 mg/dL 8.7-10 .3 Not Available [facility] ([facility]) [address] [facility], [place], [address], 07/21/2024 08:29:34 07/21/19 25 07/21/2024 COMP. METAB OLIC PANEL (14) protein, total 6.7 g/dL 6.0-8. 5 Not Available [facility] ([facility]) [address] [facility], [place], [address], 07/21/2024 08:29:34 07/21/19 25 07/21/2024 COMP. METAB OLIC PANEL (14) albumin 4.2 g/dL 3.9-4. 9 Not Available [facility] ([facility]) [address] [facility] [place], [address], 07/21/2024 08:29:34 07/21/19 25 07/21/2024 COMP. METAB OLIC PANEL (14) globulin, total 2.5 g/dL 1.5-4. 5 Not Available [facility] ([facility]) [address] [facility] [place], [address], 07/21/2024 08:29:34 07/21/19 25 07/21/2024 COMP. METAB OLIC PANEL (14) bilirubin, total 0.6 mg/dL 0.0-1. 2 Not Available [facility] ([facility]) [address] [facility] [place], [address], 07/21/2024 08:29:34 07/21/19 25 07/21/2024 COMP. METAB OLIC PANEL (14) alkaline phosphatase 80 IU/L 44-121 Not Available [facility] ([facility]) [address] [facility], [place], [address], 07/21/2024 08:29:34 07/21/19 25 07/21/2024 COMP. METAB OLIC PANEL (14) AST (SGOT) 18 IU/L 0-40 Not Available [facility] ([facility]) [address] [facility], [place], [address], 07/21/2024 08:29:34 07/21/19 25 07/21/2024 COMP. METAB OLIC PANEL (14) ALT (SGPT) 9 IU/L 0-32 Not Available [facility] ([facility]) [address] [facility], [place], [address], 07/21/2024 08:29:34 07/21/19 25 07/21/2024 MICRO SCOPI C EXAMI NATIO N WBC NONE SEEN /hpf 0-5 Not Available [facility] ([facility]) [address] [facility], [place], [address], 07/21/2024 08:29:35 07/21/19 25 07/21/2024 MICRO SCOPI C EXAMI NATIO N RBC NONE SEEN /hpf 0-2 Not Available [facility] ([facility]) [address] [facility], [place], [address], 07/21/2024 08:29:35 07/21/19 25 07/21/2024 MICRO SCOPI C EXAMI NATIO N epithelial cells (non renal) >10 /hpf 0-10 abnormal Not Available [facility] ([facility]) [address] [facility], [place], [address], 07/21/2024 08:29:35 07/21/19 25 07/21/2024 MICRO SCOPI C EXAMI NATIO N casts NONE SEEN /lpf nonese en Not Available [facility] ([facility]) [address], [place], [address], 07/21/2024 08:29:35 07/21/19 25 07/21/2024 MICRO SCOPI C EXAMI NATIO N bacteria FEW nonese en/few Not Available [facility] ([facility]) [address], [place], [address], 07/21/2024 08:29:35 07/21/19 25 07/21/2024 URINA LYSIS , ROUTI NE specific gravity 1.008 1.005- 1.030 Not Available [facility] ([facility]) [address] [facility], [place], [address], 07/21/2024 08:29:36 07/21/19 25 07/21/2024 URINA LYSIS , ROUTI NE pH 7.5 5.0-7. 5 Not Available [facility] ([facility]) [address] [facility], [place], [address], 07/21/2024 08:29:36 07/21/1907/21/2024 URINA LYSIS , ROUTI NE urine-color YELLOW yellow Not Available [facility] ([facility]) [address] [facility], [place], [address], 07/21/2024 08:29:36 07/21/19 25 07/21/2024 URINA LYSIS , ROUTI NE appearance CLEAR clear Not Available [facility] ([facility]) [address] [facility], [place], [address], 07/21/2024 08:29:36 07/21/1907/21/2024 URINA LYSIS , ROUTI NE WBC esterase NEGATI VE negati ve Not Available [facility] ([facility]) [address] [facility], [place], [address], 07/21/2024 08:29:36 07/21/19 25 07/21/2024 URINA LYSIS , ROUTI NE protein NEGATI VE negati ve/tra ce Not Available [facility] ([facility]) [address] [place], [address], 07/21/2024 08:29:36 07/21/19 25 07/21/2024 URINA LYSIS , ROUTI NE glucose NEGATI VE negati ve Not Available [facility] ([facility]) [address] [place], [address], 07/21/2024 08:29:36 07/21/19 25 07/21/2024 URINA LYSIS , ROUTI NE ketones NEGATI VE negati ve Not Available [facility] ([facility]) [address] [place], [address], 07/21/2024 08:29:36 07/21/19 25 07/21/2024 URINA LYSIS , ROUTI NE occult blood TRACE negati ve abnormal Not Available [facility] ([facility]) [address] [place], [address], 07/21/2024 08:29:36 07/21/19 25 07/21/2024 URINA LYSIS , ROUTI NE bilirubin NEGATI VE negati ve Not Available [facility] ([facility]) [address] [place], [address], 07/21/2024 08:29:36 07/21/19 25 07/21/2024 URINA LYSIS , ROUTI NE urobilinogen ,semi-qn 0.2 mg/dL 0.2-1. 0 Not Available [facility] ([facility]) [address] [place], [address], 07/21/2024 08:29:36 07/21/19 25 07/21/2024 URINA LYSIS , ROUTI NE nitrite, urine NEGATI VE negati ve Not Available [facility] ([facility]) [address] [place], [address], 07/21/2024 08:29:36 07/21/1907/21/2024 URINA LYSIS , ROUTI NE microscopic examination SEE BELOW: Micro cruzito vaca was indic ated and was perfo rmed. Not Available [facility] ([facility]) [address] [place], [address], 07/21/2024 08:29:36 07/21/1907/21/2024 TSH TSH 4.290 uIU/m L 0.450- 4.500 Not Available [facility] ([facility]) [address] [place], [address], 07/21/2024 08:29:37 07/21/1907/21/2024 CBC, PLATE LET, NO DIFFE RENTI AL WBC 9.0 x10e3 /uL 3.4-10 .8 Not Available [facility] ([facility]) [address] [facility], [place], [address], 07/21/2024 08:29:39 07/21/1907/21/2024 CBC, PLATE LET, NO DIFFE RENTI AL RBC 5.64 x10e6 /uL 3.77-5 .28 above high normal Not Available [facility] ([facility]) [address] [place], [address], 07/21/2024 08:29:39 07/21/1907/21/2024 CBC, PLATE LET, NO DIFFE RENTI AL hemoglobin 14.2 g/dL 11.1-1 5.9 Not Available [facility] ([facility]) [address] [place], [address], 07/21/2024 08:29:39 07/21/19 25 07/21/2024 CBC, PLATE LET, NO DIFFE RENTI AL hematocrit 45.2 % 34.0-4 6.6 Not Available [facility] ([facility]) [address] [place], [address], 07/21/2024 08:29:39 07/21/19 25 07/21/2024 CBC, PLATE LET, NO DIFFE RENTI AL MCV 80 fL 79-97 Not Available [facility] ([facility]) [address] [facility], [place], [address], 07/21/2024 08:29:39 07/21/1907/21/2024 CBC, PLATE LET, NO DIFFE RENTI AL MCH 25.2 pg 26.6-3 3.0 below low normal Not Available [facility] ([facility]) [address] [place], [address], 07/21/2024 08:29:39 07/21/1907/21/2024 CBC, PLATE LET, NO DIFFE RENTI AL MCHC 31.4 g/dL 31.5-3 5.7 below low normal Not Available [facility] ([facility]) [address] [facility], [place], [address], 07/21/2024 08:29:39 07/21/1907/21/2024 CBC, PLATE LET, NO DIFFE RENTI AL RDW 14.4 % 11.7-1 5.4 Not Available [facility] ([facility]) [address] [place], [address], 07/21/2024 08:29:39 07/21/1907/21/2024 CBC, PLATE LET, NO DIFFE RENTI AL platelets 360 x10e3 /uL 150-45 0 Not Available [facility] ([facility]) [address] [place], [address], 07/21/2024 08:29:39 07/21/1907/21/2024 VITAM IN D, 25-HY DROXY vitamin D, [...] 1. IOM (Inst itute of Medic ine). 2010. Simona ry refer ence kian es for calci um and D. Nilda valdivia [place]: The Natio nal [facility] Press . 2. Holic k MF, Binkl ey [place], Bisch off-F errar i DINH, et al. Evalu ation , treat ment, and preve ntion of vitam in D defic iency : an Endoc rine Socie ty clini chai pract ice guide line. JCEM. 2010; 96(7) :1911 -30. Not Available [facility] ([facility]) [address] [facility], [place], [address], 07/21/2024 08:29:40 08/08/19 25 08/07/2024 US, echoc ardio gram, trans thora cic, compl ete, w/ color flow No observ ation record ed. [address], [place], [address], 09/13/2024 15:45:11 08/09/19 25 08/07/2024 LDCT, chest , for lung cance r scree agatha No observ ation record ed. [address], [place], [address], 09/13/2024 15:45:11 Result Notes None recorded. Problems Name Problem SNOMED Code Status Onset Date Resolution Date Notes Provider Name and Address Organization Details Recorded Time Benign hypertensio n 90051966 Active 2024 Niharika Trotter MD Attn: Adelaida felix,[address] [facility], [place], [address], [facility] 14:41:05 History of nicotine dependence Active 2024 Niharika Trotter MD Attn: Accounttirso g,[address] [facility], [place], [address], [place] [facility] 5 14:41:07 Pneumococca l vaccination declined 889216801 Active 2024 Niharika Trotter MD Attn: Accounttirso g,[address] [facility], [place], [address], [place] [facility] 14:41:37 Tetanus vaccination declined by patient 422375410 Active 2024 Niharika Trotter MD Attn: Accountin g,[address] [facility], [place], [address], [place] [facility] 5 14:41:40 Heart murmur 83930832 Active 2024 Niharika Trotter MD Attn: Accounttirso g,[address] [facility], [place], [address], [place] [facility] 5 14:42:59 Breast cancer screening declined 9006282222977 9103 Active 2024 Niharika Trotter MD Attn: Accounttirso g,[address] [facility], [place], [address], [place] [facility] 5 19:48:27 Influenza vaccination declined 669267469 Active 2024 Niharika Trotter MD Attn: Accounttirso g,[address] [facility], [place], [address], [place] [facility] 5 19:49:03 Vitamin D deficiency 53212463 Active 2024 Niharika Trotter MD Attn: Accountin g,[address] [facility], [place], [address], [place] [facility] 5 15:44:21 Hypercholes terolemia 73479589 Active 2024 Niharika Trotter MD Attn: Accountin g,[address] [facility], [place], [address], [place] [facility] 15:45:28 Problem Notes None recorded. Procedures Surgical History Date Name Laterality Status Provider Name and Address Organization Details Recorded Time open reduction completed Niharika Trotter MD Attn: Accounting, [facility], [place], [address], [facility] 07/19/2024 14:26:56 Appendectomy completed Niharika Trotter MD Attn: Accounting,[address] [facility], [place], [address], [facility] 07/19/2024 14:26:34 Imaging Results None recorded. Procedure Notes None recorded. Medical Equipment None Reported. Allergies No known drug allergies Medications Name Sig Start Date Stop Date Status Note LastModified by Organization Details LastModified Time nifedipine ER 30 mg tablet,exte nded release 24 hr TAKE 1 TABLET BY MOUTH EVERY DAY AROUND THE CLOCK FOR HYPERTENS ION 10/09 completed Not Available Not Available Not Available nifedipine ER 60 mg tablet,exte nded release 24 hr TAKE 1 TABLET BY MOUTH EVERY DAY DIRECTED FOR HYPERTENS ION active Not Available Not Available No t Available ergocalcife rol (vitamin D2) 1,250 mcg (50,000 unit) capsule TAKE 1 CAPSULE BY MOUTH EVERY WEEKS active Not Available Not Available No t Available rosuvastati n 10 mg tablet TAKE 1 TABLET BY MOUTH DAILY active Not Available Not Available No t Available Vitals Date Recorded Respiratory rate Systolic blood pressure Diastolic blood pressure Provider Name and Address Organization Details Last Updated DateTime 07/19/2024 12 /min 160 mm[Hg] 100 mm[Hg] Niharika Trotter MD Attn: Accounting, [address] [facility], [place], [address], [facility] 07/19/2024 14:56:30 Date Recorded Body weight Body mass index (BMI) Body height Body temperature Heart rate Oxygen saturation Oxygen saturation in Arterial blood by Pulse oximetry Systolic blood pressure Diastolic blood pressure Provider Name and Address Organization Details Last Updated DateTime 91977.3 7 g 22.3 kg/m2 162.56 cm 97.3 [degF] 83 /min 98 % 98 % 146 mm[Hg] 90 mm[Hg] Marietta Gary [facility] 14:18:05 Date Recorded Body height Body mass index (BMI) Body weight Oxygen saturation Oxygen saturation in Arterial blood by Pulse oximetry Heart rate Systolic blood pressure Diastolic blood pressure Provider Name and Address Organization Details Last Updated DateTime 162.56 cm 21.8 kg/m2 01741.2 3 g 97 % 97 % 84 /min 190 mm[Hg] 102 mm[Hg] Opal Flower MA [facility] 15:13:29 Date Recorded Respiratory rate Body temperature Provid er Name and Address Organization Details Last Updated DateTime 09/13/2024 16 /min 97.9 [degF] Nikki Gunn MA [facility] 09/13/2024 15:17:53 Date Recorded Systolic blood pressure Diastolic blood pressure Provider Name and Address Organization Details Last Updated DateTime 10/09/2024 160 mm[Hg] 100 mm[Hg] Niharika Trotter MD Attn: Accounting,[address] [place], [address], [facility] 10/09/2024 18:26:06 Date Recorded Body height Body mass index (BMI) Body weight Heart rate Oxygen saturation Oxygen saturation in Arterial blood by Pulse oximetry Respiratory rate Systolic blood pressure Diastolic blood pressure Provider Name and Address Organization Details Last Updated DateTime 162.56 cm 21.6 kg/m2 11739.2 8 g 80 /min 97 % 97 % 14 /min 150 mm[Hg] 90 mm[Hg] Nikki Gunn MA [facility] 16:50:51 Social History Question Answer Notes LastModified by Organizat ion Details LastModified Time Tobacco Smoking Status Current Every Day Smoker Marietta pelletier, [facility] 07/19/2024 14:13:50 What Is Your Level Of Caffeine Consumption? Moderate Information not available 07/19/2024 What Was The Date Of Your Most Recent Tobacco Screening? 10/09/2024 [email or web address] Information not available 10/09/2024 What Is Your Current Pack Years? 30ormorepacky ears [email or web address] Information not available 07/19/2024 At What Age Did You Start Smoking Tobacco? 13 Information not available 07/19/2024 How Much Tobacco Do You Smoke? 0.5 PPD [email or web address] Information not available 07/19/2024 Has Tobacco Cessation Counseling Been Provided? Yes [email or web address] Information not available 07/19/2024 On What Date Was Tobacco Cessation Counseling Provided? 09/13/2024 [email or web address] Information not available 09/13/2024 How Many Years Have You Smoked Tobacco? 53 Since 13 Yo Information not available 07/19/2024 Sex: Unknown Functional Status Question Answer Note LastModified by Organizat ion Details LastModified Time Do you use any illicit or recreational drugs? No Information not available 07/19/2024 Do you or have you ever used any other forms of tobacco or nicotine? No [email or web address] Information not available 07/19/2024 What is your level of alcohol consumption? None Stopped 1999 Information not available 07/19/2024 Mental Status None recorded. Family History Relationship [...] completed Niharika Trotter MD Attn: Accounting,[address] [place], [address], [facility] 07/19/2024 14:19:46 Past Encounters Encounter ID Performer Location Encounter Start Date Encounter Closed Date Diagnosis/Indication Diagnosis SNOMED-CT Code Diagnosis ICD10 Code Diagnosis Note [id number] Niharika Trotter MD [facility] (Adult Med) [address] [place] [address] 07/19/2024 13:44:50 07/20/2024 11:27:08 General examination of patient 250219755 Z00.01 History of nicotine dependence 2613622097 69947812 Z87.891 Tetanus va ccination declined by patient 295937752 Z28.21 Benign hypertension 1072 5009 I10 Discussed in detailStar t Nifedipine 30mg po daily, side effects were discussed Pneumococc al vaccination declined 277831782 Z28.21 Breast can cer screening declined 6265062121 9787084 Z53.20 Heart murmur 12045683 R0 1.1 Tachycardia 5874825 R00. 0 Influenza vaccination declined 499762659 Z28.21 [id number] MD Layla Armstrong (Adult Med) [address] [place] [phone] 09/13/2024 15:02:00 09/14/2024 10:15:19 Benign hypertension 78142668 I10 Uncontroll ed due to non compliance Start nifedipine , side effects including but not limited to dizziness and headache were discussed in detail. OV 07/19/2024D iscussed in detailStar t Nifedipine 30mg po daily, side effects were discussed Vitamin D deficiency 347 45707 E55.9 Start Vitamin D Blood in urine 88070856 R31.9 Echocardio gram abnormal 633745160 R93.1 The echocardio gram report was discussed in detail, she is to establish care with cardiologi st as referred Note from 08/16/2024T TE 08/07/2024 DD, LVH and moderate aortic valve sclerosisC ardiology opinion needed Hypercholesterolemia 136 59734 E78.00 Low-fat low-carboh ydrate diet [id number] MD Layla Armstrong (Adult Med) [address] [place] [phone] 10/09/2024 15:56:13 10/10/2024 10:25:36 Benign hypertension 99359782 I10 Uncontroll edIncrease Nifedipine to 60 mg, side effects were discussed OV 09/13/2024U ncontrolle d due to non compliance Start nifedipine , side effects including but not limited to dizziness and headache were discussed in detail. OV 07/19/2024D iscussed in detailStar t Nifedipine 30mg po daily, side effects were discussed Weight decreased [id number] 01 R63.4 - 2 lbs Health Concerns Section Related Observation LastModified by Organization Detai ls LastModified Time None Recorded Concern Status LastModified by Organization Details LastModified Time None Recorded Advance Directives Directive None Recorded Payers Insurance Date Sequence Insurance Name Policy Number Policy Martin Covered Member ID Martin Member ID Guarantor Name 10/06/2024 1 [facility] (MEDICARE REPLACEMENT/ ADVANTAGE - HMO) [id number] Rachael Moore [id number] Rachael Moore Notes Date Note Type Note [...] she has HTN Niharika Trotter MD Attn: Accounting, [place], [address], [facility] 07/19/2024 19:49:33 5 text/html Hypertension F/UReported bypatient.Associated Symptoms:no dizziness; no lightheadedness; no chest pain; no shortness of breath; no palpitations; no edema; no calf pain with exertion Lifestyle:regular exercise; limiting/avoiding salt Medications:no side effects from medication;not taking medications as directed I didn't cloth picker the medicine, I didn't know it was called in Ms. Moore was unaware that prescription was called in to the pharmacy. She denies any headache or shortness for breath and feels otherwise well Niharika Trotter MD Attn: Accounting, [place], [address], [facility] 09/13/2024 16:44:33 5 text/html You said a check upI want to know why so much weight loss, Summer time, I always lose weight Ms Moore has been fully compliant with her medications, and she has a scheduled appointment with the employment agency manager. Niharika Trotter MD Attn: Accounting, [place], [address], [facility] 10/09/2024 18:29:00 OBGyn Episode No OBEpisode recorded.
--- OUTSIDE RECORDS SUMMARY | 2024-10-25 14:23 | XMS_ITS | Clinical Summary ---
Author Organization [facility] Address [address] [place] [address] Care Team Providers Care Manufacturing Analyst Name Role Phone Henny Mendes FISH ICER-TEAM PHYSICIAN Unavailable [phone] Source Comments [facility],non-owned Affiliates and Associated Physician Practices is amultiple site organization consisting of ambulatory clinics and hospital sitesin [place], [place], [place] and [place]. This disclosure is being madepursuant to the Care Everywhere program and may not contain all information available regarding this patient. Last updated 18.[facility] Social History Tobacco Use Types Packs/Day Years [...] on patient's age to complete this topic Care Teams Manufacturing Analyst Relationship Specialty Start Date End Date Henny Mendes, FISH ICER-TEAM PHYSICIAN [address] [place] [phone] PCP - Attributed-[facility] 08/24/24
[2024-10-25 15:06] LABS: Alanine Aminotransferase 19 U/L (6-35); Albumin Level 4.1 g/dL (3.5-5.1); Alkaline Phosphatase 67 U/L (38-126); Anion Gap 8 mmol/L (4-12); Aspartate Amino Transferase 27 U/L (14-36); Bilirubin,Total 0.6 mg/dL (0.2-1.3); Blood Urea Nitrogen 14 mg/dL (7-17); Calcium 9.3 mg/dL (8.4-10.2); Carbon Dioxide 27 mmol/L (22-30); Chloride 103 mmol/L (98-107); Cholesterol 144 mg/dL (0-200); Estimated Glomerular Filt Rate 53; Glucose 197 mg/dL (65-110); HDL Direct 60 mg/dL; Potassium 3.4 mmol/L (3.4-5.0); Sodium 138 mmol/L (137-145); Total Protein 7.0 g/dL (6.3-8.2); Triglycerides 106 mg/dL (<150)
== END 2024-10-25 14:15 | disposition home or self-care (01) ==
LOC: ANHLAB 14:19
PROVIDERS: PCP Internal Medicine Infectious Disease; Visit Provider Hospitalist
DX: E78.5 Hyperlipidemia, unspecified (principal); I35.8 Other nonrheumatic aortic valve disorders; I11.9 Hypertensive heart disease without heart failure; Z82.49 Family history of ischemic heart disease and other diseases of the circulatory system
CPT/HCPCS: 36415; 80053; 80061

== ENCOUNTER 2025-01-29 16:12 | Outpatient (CLI) | payer MEDICARE, SELFPAY ==
--- OUTSIDE RECORDS SUMMARY | 2025-01-29 16:21 | XMS_ITS | Clinical Summary ---
Author Organization [facility] Address [address] [place] [address] Care Team Providers Care Straight Truck Driver Name Role Phone Concetta Ellison BREAKER MACHINE OPERATOR-WINE AND SPIRITS CLERK Unavailable [phone] Source Comments [facility] [employer],non-owned Affiliates and Associated Physician Practices is amultiple site organization consisting of ambulatory clinics and hospital sitesin [place], [place]. This disclosure is being madepursuant to the Care Everywhere program and may not contain all information available regarding this patient. Last updated 18.[facility] [employer] Social History Tobacco Use Types Packs/Day Years [...] 08/29/2003 ZOSTER VACCINE (1 of 2) 08/29/2003 DEPRESSION SCREENING 04/26/2024 COVID-19 VACCINE ( - 2023-2 5 season) 2024 INFLUENZA VACCINE (#1) 2024 Respiratory Syncytial Virus (RSV) Vaccine Pt: [...] age to complete this topic Care Teams Straight Truck Driver Relationship Specialty Start Date End Date Concetta Ellison, BREAKER MACHINE OPERATOR-WINE AND SPIRITS CLERK [address] [place] [address] PCP - Attributed-[facility] 11/24/24
[2025-01-29 18:00] LABS: Alanine Aminotransferase 17 U/L (6-35); Albumin Level 4.2 g/dL (3.5-5.1); Alkaline Phosphatase 64 U/L (38-126); Anion Gap 7 mmol/L (4-12); Aspartate Amino Transferase 27 U/L (14-36); Bilirubin,Total 0.5 mg/dL (0.2-1.3); Blood Urea Nitrogen 18 mg/dL (7-17); Calcium 9.1 mg/dL (8.4-10.2); Carbon Dioxide 30 mmol/L (22-30); Chloride 102 mmol/L (98-107); Cholesterol 136 mg/dL (0-200); Estimated Glomerular Filt Rate 39; Glucose 155 mg/dL (65-110); HDL Direct 69 mg/dL; Potassium 3.4 mmol/L (3.4-5.0); Sodium 139 mmol/L (137-145); Total Protein 7.1 g/dL (6.3-8.2); Triglycerides 100 mg/dL (<150)
== END 2025-01-29 16:13 | disposition home or self-care (01) ==
LOC: ANHLAB 16:15
PROVIDERS: PCP Internal Medicine Infectious Disease; Visit Provider Internal Medicine Cardiovascular Disease
DX: E78.5 Hyperlipidemia, unspecified (principal); I10 Essential (primary) hypertension; Z72.0 Tobacco use; Z82.49 Family history of ischemic heart disease and other diseases of the circulatory system
CPT/HCPCS: 36415; 80053; 80061